=== PATIENT | female | born 1950 | race Two or more races ===

== ENCOUNTER 2024-09-12 07:05 | Inpatient (IN) | payer OTHER ==
[2024-09-06 08:58] VITALS: BP 140/76
[2024-09-06 09:13] LABS: BASO % 0.3 % (0.1-1.2); EOS # 0.11 (0.04-0.54); EOS % 1.5 % (0.7-7.0); LYMPH # 2.88 (1.18-3.74); LYMPH % 39.0 % (19.3-53.1); MEAN PLATELET VOLUME 10.30 fl (9.4-12.4); MONO # 0.47 (0.24-0.82); MONO % 6.4 % (4.7-12.5); NEUT # 3.89 (1.56-6.13); NEUT % 52.7 % (34.0-71.1); RED CELL DISTRIBUTION WIDTH 12.8 % (11.6-14.4)
[2024-09-06 09:34] LABS: INR 1.0; URINE APPEARANCE Clear; URINE BILIRRUBIN Negative (NEGATIVE); URINE BLOOD Negative; URINE COLOR Yellow; URINE KETONE Negative (NEGATIVE); URINE LEUKOCYTE Large; URINE NITRATE Negative; URINE PROTEIN Trace (NEGATIVE); URINE UROBILINOGEN 0.2 E.U./dl
[2024-09-06 09:39] LABS: URINE BACTERIA 3146.3 uL (0.0-1933); URINE EPITHELIAL CELLS 16.7 uL (0.0-38.8); URINE RBC 4.9 uL (0.0-20.8); URINE WBC 377.6 uL (0.0-23.2)
[2024-09-06 09:51] LABS: URINE CAST 1.17 uL (0.0-1.40); URINE GLUCOSE 100 MG/DL (NEGATIVE)
[2024-09-06 10:13] LABS: ALT/SGPT 18.0 U/L (12-78); AST/SGOT 10.0 U/L (15-37); BILIRUBIN TOTAL 0.79 mg/dL (0.3-1.2); BUN CREA RATIO 13.0 (7.0-25.0); CREATININE SERUM 0.75 mg/dL (0.55-1.02); GFR 75.13; GLOBULINA 4.6 G/DL (2.4-3.5); GLUCOSE FASTING 199.0 mg/dL (65-100); OSMOLALITY SERUM 282.0 MOSM/KG (275-295)
[2024-09-06 11:09] LABS: RH POSITIVE
[~2024-09-12] VITALS: Ht 160 cm; Wt 49.9 kg
[~2024-09-12 07:05] MED LIST: COZAAR100 MG PO; METFORMIN HCL1000 M2 PO; NABUMETONE750 MG PO; PARAFON FORTE500 MG PO; SIMVASTATIN20 MG PO; SKELAXIN800 MG PO; ZANAFLEX2 M1 PO
[2024-09-12] MEDS ORDERED: VANCOMYCIN HCL 1,000 MG VIAL IV ONE (10:00)
[2024-09-12] MEDS ORDERED: MORPHINE SULFATE 4 MG/ML VIAL IV ONE ×3 (10:00→13:25)
[2024-09-12] MEDS ORDERED: TRANEXAMIC ACID 100MG/1ML (1000MG) AMPUL IV ONE ×2 (10:00)
[2024-09-12] MEDS ORDERED: POLYMYXIN B SULFATE 500,000 U VIAL IR ONE (10:00)
[2024-09-12] MEDS ORDERED: KETOROLAC TROMETHAMINE 60 MG VIAL IM ONE (10:00)
[2024-09-12] MEDS ORDERED: SODIUM CHLORIDE 0.45 % 1,000 ML IV SCH (12:15)
[2024-09-12] MEDS ORDERED: MORPHINE SULFATE 4 MG/ML VIAL IV PRN (12:15)
[2024-09-12] MEDS ORDERED: ONDANSETRON HCL 2 MG/ML VIAL IV PRN (12:15)
[2024-09-12] MEDS ORDERED: SUGAMMADEX SODIUM 200 MG/2 ML VIAL IV ONE (12:30)
[2024-09-12] MEDS ORDERED: ENALAPRILAT DIHYDRATE 1.25 MG/ML VIAL IV ONE ×2 (12:55→14:00)
[2024-09-12] MEDS ORDERED: SIMVASTATIN 20 MG TABLET PO SCH (17:00)
[2024-09-12] MEDS ORDERED: MetFORMIN HCL 1000 MG TABLET PO SCH (17:00)
[2024-09-12] MEDS ORDERED: hydrALAZINE HCL 20 MG VIAL IV PRN (18:00)
[2024-09-12 20:00] VITALS: BP 169/77; O2SAT 97
[2024-09-12] MEDS ORDERED: VANCOMYCIN HCL 1,000 MG VIAL IV SCH (21:00)
[2024-09-13 03:39] VITALS: BP 150/62; O2SAT 98
[2024-09-13 08:00] VITALS: BP 150/72; O2SAT 98
[2024-09-13] MEDS ORDERED: BACTRIM DS TAB1 EACH PO (08:13)
[2024-09-13] MEDS ORDERED: INTEGRA PLUS C1 EACH PO (08:13)
[2024-09-13] MEDS ORDERED: TRAM1TAB98 PO (08:14)
[2024-09-13] MEDS ORDERED: LOSARTAN POTASSIUM 100 MG TABLET PO SCH (09:00)
[2024-09-13] MEDS ORDERED: IRON FUM,PS/FOLIC/BCOMP,C NO.9 1 CAP CAPSULE PO SCH (09:00)
[2024-09-13] MEDS ORDERED: SENNA/DOCUSATE SODIUM 1 TAB TABLET PO SCH (09:00)
[2024-09-13] MEDS ORDERED: BACITRACIN 28.35 GM OINT.TUBE TOP SCH (09:00)
[2024-09-13 09:09] LABS: BASO % 0.1 % (0.1-1.2); EOS # 0.03 (0.04-0.54); EOS % 0.3 % (0.7-7.0); LYMPH # 1.43 (1.18-3.74); LYMPH % 14.4 % (19.3-53.1); MEAN PLATELET VOLUME 10.10 fl (9.4-12.4); MONO # 0.51 (0.24-0.82); MONO % 5.1 % (4.7-12.5); NEUT # 7.88 (1.56-6.13); NEUT % 79.3 % (34.0-71.1); RED CELL DISTRIBUTION WIDTH 12.8 % (11.6-14.4)
== END 2024-09-13 11:53 | disposition home or self-care (01) | DRG 483 ==
LOC: CIR.AMB 07:05 → EDSTATUS 08:00 → SURG 08:00 → CIR.AMB 08:00 → SURG 17:02
PROVIDERS: ADMIT Orthopaedic Surgery Sports Medicine; ATTEND Orthopaedic Surgery Sports Medicine
PROC: 0LS40ZZ Reposition Left Upper Arm Tendon, Open Approach (ICD-10-PCS; 2024-09-12)
PROC: 0RRK00Z Replacement of Left Shoulder Joint with Reverse Ball and Socket Synthetic Substitute, Open Approach (ICD-10-PCS; principal; 2024-09-12 07:00)
DX: M19.012 Primary osteoarthritis, left shoulder (principal)